=== PATIENT | male | born 1980 | race African-American/Black ===

== ENCOUNTER 2017-02-21 15:46 | Emergency (ER) | payer MEDICARE, MEDICAID ==
[~2017-02-21] VITALS: Ht 185.4 cm; Wt 100.0 kg
[~2017-02-21 15:46] MED LIST: FLEXERIL OR; FLEXERIL PO; FLONASE NASAL50 MCG; HYDROMORPHON4 MG PO; IBUPROFEN800 MG PO; LORTAB 7.5 OR; LORTAB5 PO; MOTRIN800 MG/TAB PO; NAPROSYN375 MG PO; NAPROSYN500 MG PO; NIZORAL2 % EX; NO; ULTRAM50 M1 PO
[2017-02-21] MEDS ORDERED: PENICILLN VK500 MG PO (15:55)
[2017-02-21 16:07] VITALS: BP 141/89
[2017-02-21] MEDS ORDERED: OPANA PO (16:07)
[2017-02-21] MEDS ORDERED: HYDROMORPHONE HC8 MG PO (16:08)
[2017-02-21] MEDS ORDERED: ALPRAZOLAM1 MG PO (16:08)
== END 2017-02-21 16:12 | disposition home or self-care (01) ==
LOC: ED 15:46
DX: J02.9 Acute pharyngitis, unspecified (principal)

== ENCOUNTER 2017-02-26 17:00 | Emergency (ER) | payer MEDICARE, MEDICAID ==
[~2017-02-26] VITALS: Ht 185.4 cm; Wt 110.0 kg
[~2017-02-26 17:00] MED LIST changes: +ALPRAZOLAM1 MG PO; +HYDROMORPHONE HC8 MG PO; +OPANA PO; +PENICILLN VK500 MG PO
[2017-02-26] MEDS ORDERED: MOTRIN800 MG PO (17:35)
[2017-02-26] MEDS ORDERED: AMOXICILLIN500 MG PO (17:35)
[2017-02-26] MEDS ORDERED: CORTISPORIN OTI10 ML AS (17:35)
[2017-02-26 18:05] VITALS: BP 124/81
== END 2017-02-26 18:05 | disposition home or self-care (01) ==
LOC: ED 17:00
DX: H60.92 Unspecified otitis externa, left ear (principal)

== ENCOUNTER 2018-05-12 06:35 | Emergency (ER) | payer MEDICARE, MEDICAID ==
[~2018-05-12] VITALS: Ht 185.4 cm; Wt 111.0 kg
[~2018-05-12 06:35] MED LIST changes: +AMOXICILLIN500 MG PO; +CORTISPORIN OTI10 ML AS; +MOTRIN800 MG PO
[2018-05-12] MEDS ORDERED: PENICILLN VK500 MG PO ×3 (07:09→19:31)
[2018-05-12 07:27] VITALS: BP 149/99
== END 2018-05-12 07:40 | disposition home or self-care (01) ==
LOC: ED 06:35
DX: K08.89 Other specified disorders of teeth and supporting structures (principal); F17.210 Nicotine dependence, cigarettes, uncomplicated

== ENCOUNTER 2018-08-19 09:51 | Emergency (ER) | payer MEDICARE, MEDICAID ==
[~2018-08-19] VITALS: Ht 188 cm; Wt 107.3 kg
[2018-08-19 11:12] VITALS: BP 139/83
[2018-08-19] MEDS ORDERED: TORADOL PO (11:22)
== END 2018-08-19 11:39 | disposition home or self-care (01) ==
LOC: ED 09:51
DX: T75.4XXA Electrocution, initial encounter (principal); W86.8XXA Exposure to other electric current, initial encounter; Y93.89 Activity, other specified; Y92.512 Supermarket, store or market as the place of occurrence of the external cause

== ENCOUNTER 2018-10-13 15:00 | Outpatient (RCR) | payer MEDICARE, MEDICAID ==
[~2018-10-13 15:00] MED LIST changes: +TORADOL PO
== END 2018-10-24 17:08 | disposition home or self-care (01) ==
LOC: PT 15:00
PROVIDERS: ATTEND Internal Medicine
DX: T14.90XD Injury, unspecified, subsequent encounter (principal); G83.24 Monoplegia of upper limb affecting left nondominant side; W86.8XXD Exposure to other electric current, subsequent encounter

== ENCOUNTER 2019-04-24 17:38 | Emergency (ER) | payer MEDICARE, MEDICAID ==
[~2019-04-24] VITALS: Ht 188 cm; Wt 109.1 kg
[2019-04-24] MEDS ORDERED: AMOX/K CLAV875 M1 PO (19:06)
[2019-04-24 19:20] VITALS: BP 138/90
== END 2019-04-24 19:20 | disposition home or self-care (01) ==
LOC: ED 17:38
DX: G89.29 Other chronic pain (principal); M79.651 Pain in right thigh; M25.512 Pain in left shoulder; M79.602 Pain in left arm; J32.9 Chronic sinusitis, unspecified; I10 Essential (primary) hypertension; Z79.891 Long term (current) use of opiate analgesic

== ENCOUNTER 2022-07-03 07:29 | Emergency (ER) | payer MEDICARE, MEDICAID ==
[~2022-07-03] VITALS: Ht 188 cm; Wt 108.8 kg
[~2022-07-03 07:29] MED LIST changes: +AMOX/K CLAV875 M1 PO
[2022-07-03] MEDS ORDERED: DILAUDID2 MG PO (07:56)
[2022-07-03] MEDS ORDERED: CYCLOBENZAPRINE HCL (07:57)
[2022-07-03 08:18] VITALS: BP 139/94
[2022-07-03] MEDS ORDERED: TRAMADOL HYDROC50 M1 PO (08:43)
== END 2022-07-03 08:40 | disposition home or self-care (01) ==
LOC: ED 07:29
PROC: 2W3QX1Z Immobilization of Right Lower Leg using Splint (ICD-10-PCS; principal; 2022-07-03)
DX: S82.831A Other fracture of upper and lower end of right fibula, initial encounter for closed fracture (principal); I10 Essential (primary) hypertension; X50.0XXA Overexertion from strenuous movement or load, initial encounter; Y93.89 Activity, other specified; Y92.009 Unspecified place in unspecified non-institutional (private) residence as the place of occurrence of the external cause

== ENCOUNTER 2022-07-24 16:43 | Emergency (ER) | payer MEDICARE, MEDICAID ==
[~2022-07-24] VITALS: Ht 188 cm; Wt 111.1 kg
[~2022-07-24 16:43] MED LIST changes: +CYCLOBENZAPRINE HCL; +DILAUDID2 MG PO; +TRAMADOL HYDROC50 M1 PO
[2022-07-24 18:42] VITALS: BP 163/109
[2022-07-24 19:00] VITALS: BP 166/107
[2022-07-24] MEDS ORDERED: TAM75CAP PO (19:33)
[2022-07-24] MEDS ORDERED: AMLODIPINE BESY10 MG PO (19:33)
[2022-07-24 19:45] VITALS: BP 166/107
== END 2022-07-24 19:45 | disposition home or self-care (01) ==
LOC: ED 16:43
DX: J10.1 Influenza due to other identified influenza virus with other respiratory manifestations (principal); I10 Essential (primary) hypertension; Z20.822 Contact with and (suspected) exposure to COVID-19

== ENCOUNTER 2022-11-28 08:12 | Emergency (ER) | payer OTHER, MEDICARE, MEDICAID ==
[~2022-11-28] VITALS: Ht 188 cm; Wt 100.0 kg
[~2022-11-28 08:12] MED LIST changes: +AMLODIPINE BESY10 MG PO; +TAM75CAP PO
[2022-11-28 08:22] VITALS: BP 156/104
[2022-11-28 08:31] VITALS: BP 162/112
[2022-11-28 09:00] VITALS: BP 163/110
[2022-11-28 09:34] VITALS: BP 160/94
== END 2022-11-28 09:43 | disposition home or self-care (01) | DRG 556 ==
LOC: ED 08:12
DX: M79.641 Pain in right hand (principal); M25.521 Pain in right elbow; I10 Essential (primary) hypertension; V49.9XXA Car occupant (driver) (passenger) injured in unspecified traffic accident, initial encounter

== ENCOUNTER 2023-01-29 04:30 | Emergency (ER) | payer MEDICARE, MEDICAID ==
[~2023-01-29] VITALS: Ht 188 cm; Wt 110.0 kg
[2023-01-29] MEDS ORDERED: AMOXICILLIN500 MG PO (05:54)
[2023-01-29] MEDS ORDERED: CLARITIN10 M1 PO (05:54)
[2023-01-29 06:00] VITALS: BP 146/96
== END 2023-01-29 06:08 | disposition home or self-care (01) ==
LOC: ED 04:30
DX: J02.0 Streptococcal pharyngitis (principal); I10 Essential (primary) hypertension; Z20.822 Contact with and (suspected) exposure to COVID-19

== ENCOUNTER 2023-05-12 10:33 | Emergency (ER) | payer MEDICARE, MEDICAID ==
[~2023-05-12] VITALS: Ht 188 cm; Wt 111.1 kg
[~2023-05-12 10:33] MED LIST changes: +CLARITIN10 M1 PO
[2023-05-12 10:42] VITALS: BP 148/91
[2023-05-12] MEDS ORDERED: HYDROMORPHON8 MG PO (10:53)
[2023-05-12] MEDS ORDERED: CYCLOBENZAPRIN7.5 M1 (10:53)
[2023-05-12 12:46] VITALS: BP 141/92
[2023-05-12] MEDS ORDERED: MOTRIN400 MG/TAB PO (14:33)
[2023-05-12 14:40] VITALS: BP 141/92
== END 2023-05-12 14:45 | disposition home or self-care (01) ==
LOC: ED 10:33
DX: S46.211A Strain of muscle, fascia and tendon of other parts of biceps, right arm, initial encounter (principal); I10 Essential (primary) hypertension; M54.9 Dorsalgia, unspecified; G89.29 Other chronic pain; X50.0XXA Overexertion from strenuous movement or load, initial encounter

== ENCOUNTER 2023-09-11 09:47 | Emergency (ER) | payer OTHER, MEDICARE, MEDICAID ==
[~2023-09-11] VITALS: Ht 188 cm; Wt 111.0 kg
[~2023-09-11 09:47] MED LIST changes: +CYCLOBENZAPRIN7.5 M1; +HYDROMORPHON8 MG PO; +MOTRIN400 MG/TAB PO
[2023-09-11 10:15] VITALS: BP 182/106
[2023-09-11 10:27] VITALS: BP 168/104
[2023-09-11 10:30] VITALS: BP 156/89
[2023-09-11 10:46] VITALS: BP 138/70
[2023-09-11 10:48] LABS: BASO% 0.4 % (0-3); EOS% 1.7 % (0-8); HEMATOCRIT 46.8 % (39.0-50.0); IMMATURE GRANULOCYTES 0.1 % (0.0-5.0); LYMPH% 22.8 % (15-41); MEAN CELL VOLUME 83.6 fL CALC (80.0-100.0); MEAN CORPUSCULAR HGB 26.8 pG CALC (26.0-32.0); MEAN CORPUSCULAR HGB CONC 32.1 g/dL CAL (32.0-36.0); MONO% 11.2 % (2-13); NEUT# 4.51 thou/uL (1.82-7.42); NEUT% 63.8 % (42-76); RED BLOOD COUNT 5.6 mill/uL (4.70-6.10)
[2023-09-11 10:53] LABS: ALBUMIN 4.7 g/dL (3.2-5.0); ALKALINE PHOSPHATASE 95 u/l (38-126); ANION GAP 11 (6-22 (CALC)); BILIRUBIN, TOTAL 0.9 mg/dL (0.2-1.3); BUN 22 mg/dL (9-20); BUN/CREATININE RATIO 16 (12-20 (CALC)); CARBON DIOXIDE 26 mmol/l (22-30); CHLORIDE 105 mmol/l (95-108); CREATININE 1.4 mg/dL (0.7-1.3); GFR FOR AFR.AMER. > 60 ML/MIN (>=60 (CALC)); GFR OTHER RACES 56 ML/MIN (>=60 (CALC)); LIPASE 88 u/l (23-300); POTASSIUM 4.2 mmol/l (3.5-5.1); SGOT/AST 47 u/l (17-59); SODIUM 139 mmol/l (137-146); TOTAL PROTEIN 8.4 g/dL (6.3-8.2)
[2023-09-11 11:01] VITALS: BP 159/108
[2023-09-11 13:51] LABS: URINE BILIRUBIN - DIPSTICK Negative (NEGATIVE); URINE BLOOD DIPSTICK Negative (NEGATIVE); URINE GLUCOSE - DIPSTICK Negative (NEGATIVE); URINE KETONE Trace mg/dL (NEGATIVE); URINE LEUK ESTERASE Negative (NEGATIVE); URINE NITRITE - DIPSTICK Negative (Negative); URINE PH 6.5 (4.5-8.0); URINE PROTEIN - DIPSTICK Negative (NEG-TRACE); URINE UROBILINOGEN - DIPSTICK 0.2 E.U./dL (0.2)
[2023-09-11 13:53] LABS: URINE COLOR Yellow
[2023-09-11] MEDS ORDERED: NAPROXEN500 MG PO (14:39)
[2023-09-11] MEDS ORDERED: OFLOXACIN0.3 % OS (14:39)
[2023-09-11 14:52] VITALS: BP 138/70
== END 2023-09-11 15:01 | disposition home or self-care (01) | DRG 90 ==
LOC: ED 09:47
PROVIDERS: Family Medicine
DX: S06.0X0A Concussion without loss of consciousness, initial encounter (principal); S05.02XA Injury of conjunctiva and corneal abrasion without foreign body, left eye, initial encounter; I10 Essential (primary) hypertension; E78.5 Hyperlipidemia, unspecified; V49.40XA Driver injured in collision with unspecified motor vehicles in traffic accident, initial encounter
CPT/HCPCS: Q9967